=== PATIENT | female | born 1990 | race Caucasian/White ===

== ENCOUNTER 2018-06-10 11:13 | Emergency (ER) | payer MEDICAID, OTHER ==
[~2018-06-10] VITALS: Ht 165.1 cm; Wt 66.2 kg
[2018-06-10 11:25] VITALS: BP 121/65; PULSE 99; RESP 18; Ht 165.1 cm; Wt 66.2 kg
[2018-06-10] MEDS ORDERED: ONDANSETRON (ODT) 4 MG TAB ODT STA (13:12)
[2018-06-10] MEDS ORDERED: HYDROCODONE/APAP (5/325) TAB PO ONE (13:30)
[2018-06-10] MEDS ORDERED: NAPR-985 PO (14:40)
[2018-06-10] MEDS ORDERED: HYDR-4011 PO (14:40)
[2018-06-10] MEDS ORDERED: CYCL10TA7 PO (14:40)
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
== END 2018-06-10 14:56 | disposition home or self-care (01) ==
LOC: FTE 11:13
DX: R07.89 Other chest pain (principal); J45.909 Unspecified asthma, uncomplicated
CPT/HCPCS: 71045; 71120; Z7502; Z7610